=== PATIENT | male | born 1965 | race Caucasian/White ===

== ENCOUNTER 2016-09-21 16:25 | Emergency (ER) | payer OTHER ==
[~2016-09-21] VITALS: Ht 177.8 cm; Wt 80.0 kg
[2016-09-21] MEDS ORDERED: ARIP2TAB3 PO (16:37)
[2016-09-21] MEDS ORDERED: KETOROLAC 60MG/2ML VIAL IM ONE (17:00)
[2016-09-21] MEDS ORDERED: ONDANSETRON 4MG ODT PO ONE (17:00)
[2016-09-21 17:04] VITALS: BP 118/76
== END 2016-09-21 18:40 | disposition home or self-care (01) ==
LOC: ER 18:29
DX: G44.209 Tension-type headache, unspecified, not intractable (principal); F43.0 Acute stress reaction; Z86.59 Personal history of other mental and behavioral disorders
CPT/HCPCS: 96372; 99283; J1885; Q0162